=== PATIENT | male | born 1945 | race Caucasian/White ===

== ENCOUNTER 2020-12-01 09:42 | Outpatient (CLI) | payer MEDICARE ==
[2020-12-01 23:09] LABS: SARS-CoV-2 PCR by NAA Not Detected (NotDetected)
== END 2020-12-01 09:43 | disposition home or self-care (01) ==
LOC: LABBT 09:42
PROVIDERS: ATTEND Plastic Surgery
DX: Z01.812 Encounter for preprocedural laboratory examination (principal); Z20.822 Contact with and (suspected) exposure to COVID-19
CPT/HCPCS: U0003; U0005

== ENCOUNTER 2020-12-04 07:41 | Day surgery (SDC) | payer MEDICARE ==
[2020-12-04] MEDS ORDERED: Heparin 5,000 UNITS/ML VIAL ONE (09:58)
[2020-12-04] MEDS ORDERED: Mineral Oil Sterile 10 ML VIAL ONE (11:23)
[2020-12-04] MEDS ORDERED: Bacitracin Zinc Ointment 30 gm TUBE ONE (11:23)
[2020-12-04] MEDS ORDERED: Bupivacaine 0.25% HCL 30 ML VIAL ONE (11:23)
[2020-12-04] MEDS ORDERED: EPINEPHrine 1 MG/ML AMP ONE ×2 (11:23→12:34)
[2020-12-04] MEDS ORDERED: Methylene Blue 50 MG/10 ML AMPUL ONE (11:23)
[2020-12-04] MEDS ORDERED: Fentanyl 250 MCG/5 ML VIAL ONE (12:30)
[2020-12-04] MEDS ORDERED: Lidocaine 1% PF 5 ML VIAL ONE (12:50)
[2020-12-04] MEDS ORDERED: ePHEDrine 50 MG/ML VIAL ONE (12:50)
[2020-12-04] MEDS ORDERED: PROPOFOL 200 MG/20 ML VIAL ONE (12:50)
[2020-12-04] MEDS ORDERED: Dexamethasone 20 MG/5 ML VIAL ONE (12:50)
[2020-12-04] MEDS ORDERED: Isosulfan Blue 50 MG/5 ML VIAL ONE (13:01)
== END 2020-12-04 17:12 | disposition home or self-care (01) ==
LOC: NM 07:41
PROVIDERS: ATTEND Plastic Surgery
PROC: 0HRDX74 Replacement of Right Lower Arm Skin with Autologous Tissue Substitute, Partial Thickness, External Approach (ICD-10-PCS; principal; 2020-12-04)
PROC: 07B50ZX Excision of Right Axillary Lymphatic, Open Approach, Diagnostic (ICD-10-PCS; 2020-12-04)
DX: C43.61 Malignant melanoma of right upper limb, including shoulder (principal); Z79.899 Other long term (current) drug therapy; Z91.041 Radiographic dye allergy status
CPT/HCPCS: 11606; 15100; 38525; 38900; 78195; 97139; A9541; Q9968 ×2; 88305; 88307; J0171; J0690; J1100; J1644; J2704; J3010; J3490; S0020